=== PATIENT | male | born 1995 | race Caucasian/White ===

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

== ENCOUNTER 2019-02-25 15:24 | Emergency (ER) | payer SELFPAY ==
[2019-02-25 15:44] VITALS: BP 133/86; PULSE 89
--- NOTE | 2019-02-25 15:56 | EDM.PDOC ---
ED HPI GENERAL MEDICAL PROBLEM - General Chief Complaint: ENT Problem Stated Complaint: RIGHT JAW;POSSIBLE INFECTION Time Seen by Provider: 02/25/19 15:25 Source of Information: Reports: Patient History Limitations: Reports: No Limitations - History of Present Illness INITIAL COMMENTS - FREE TEXT/NARRATIVE: HISTORY AND PHYSICAL: History of present illness: The patient is a 23-year-old male presenting to the emergency room for complaints of his right jaw. Patient states that the pain in his right jaw started approximately 1 week ago after he noticed a "sore on the inside of my right cheek". He has concerns that his jaw may be infected due to the sore on the inside of his cheek. Patient states he woke up with this sore approximately 1 week ago. Patient states he broke his right jaw in middle school. He states he has also been disorientated for the last couple days making him dizzy and queasy at times, having right ear pain, and has had tinnitus and had last eaten last . Aggravates or alleviates his symptoms. Patient denies any fever, chills, headache, change in vision, syncope or near syncope. Denies any chest pain, back pain, shortness of breath or cough. Denies any abdominal pain, vomiting, diarrhea, constipation or dysuria. Has not noted any blood in urine or stool. Patient has been eating and drinking appropriately. Review of systems: As per history of present illness and below otherwise all systems reviewed and negative. Past medical history: As per history of present illness and as reviewed below otherwise noncontributory. Surgical history: As per history of present illness and as reviewed below otherwise noncontributory. Social history: See social history for further information Family history: As per history of present illness and as reviewed below otherwise noncontributory. Physical exam: General: Well-developed and well-nourished 23-year-old male. Alert and oriented. Flat affect and avoids eye contact. Appears in no acute distress. Vital signs have been reviewed by me. HEENT: Atraumatic, normocephalic, pupils equal and reactive bilaterally, negative for conjunctival pallor or scleral icterus, mucous membranes moist, TMs normal bilaterally, external auditory canal of the right ear is slightly erythematous, throat clear, right mandible slightly tender to palpation near the ear, neck supple, nontender, trachea midline. No drooling or trismus noted. No meningeal signs. No hot potato voice noted. Lungs: Clear to auscultation, breath sounds equal bilaterally, chest nontender. Heart: S1S2, regular rate and rhythm without overt murmur Abdomen: Soft, nondistended, nontender. Negative for masses. Skin: Intact, warm, dry. No lesions or rashes noted. Extremities: Atraumatic, moves all extremities per self without difficulty or deficits, negative for cords or calf pain. Neurovascular unremarkable. Neuro: Awake, alert, oriented. Cranial nerves II through XII unremarkable. Cerebellum unremarkable. Motor and sensory unremarkable throughout. Exam nonfocal. Notes: X-ray shows no findings for fracture or focal bony destruction. Supportive care measures were reviewed and discussed. Voices understanding and is agreeable to plan of care. Denies any further questions or concerns at this time. Diagnostics: Mandibular x-ray Therapeutics: Declines Prescription: Medrol Dosepak Impression: Canker sore Jaw pain Plan: 1. Saltwater gargle and rinse and spit 2. Take medication as directed. You may use Tylenol and/or ibuprofen as needed for pain management. 3. Follow-up with your primary care provider or the analytical research program manager as we discussed. 4. Return to the ED as needed and as discussed. Definitive disposition and diagnosis as appropriate pending reevaluation and review of above. - Related Data Allergies Allergy/AdvReac Type Severity Reaction Status Date / Time No Known Allergies Allergy Verified 02/25/19 15:34 Home Meds: Home Meds . [No Known Home Meds] 10/10/14 [History] Past Medical History Musculoskeletal History: Reports: Fracture Psychiatric History: Reports: Anxiety, Depression - Past Surgical History HEENT Surgical History: Reports: Adenoidectomy, Tonsillectomy Social & Family History - Family History Family Medical History: Noncontributory - Tobacco Use Smoking Status *Q: Never Smoker - Recreational Drug Use Recreational Drug Use: No ED ROS ENT - Review of Systems Review Of Systems: ROS reveals no pertinent complaints other than HPI. ED EXAM, ENT - Physical Exam Exam: See Below (See dictation) Course - Vital Signs Last Recorded V/S: Last Vital Signs Temp 97.9 F 02/25/19 15:32 Pulse 89 02/25/19 15:32 Resp 18 02/25/19 15:32 BP 133/86 02/25/19 15:32 Pulse Ox 99 02/25/19 15:32 Departure - Departure Time of Disposition: 16:49 Disposition: Home, Self-Care 01 Clinical Impression: Canker sore, Jaw pain - Discharge Information Referrals: PCP,None [Primary Care Provider] - Forms: ED Department Discharge Additional Instructions: The following information is given to patients seen in the emergency department who are being discharged to home. This information is to outline your options for follow-up care. We provide all patients seen in our emergency department with a follow-up referral. The need for follow-up, as well as the timing and circumstances, are variable depending upon the specifics of your emergency department visit. If you don't have a primary care physician on staff, we will provide you with a referral. We always advise you to contact your personal physician following an emergency department visit to inform them of the circumstance of the visit and for follow-up with them and/or the need for any referrals to a consulting specialist. The emergency department will also refer you to a specialist when appropriate. This referral assures that you have the opportunity for follow-up care with a specialist. All of these measure are taken in an effort to provide you with optimal care, which includes your follow-up. Under all circumstances we always encourage you to contact your private physician who remains a resource for coordinating your care. When calling for follow-up care, please make the office aware that this follow-up is from your recent emergency room visit. If for any reason you are refused follow-up, please contact the [facility] Emergency Department at and asked to speak to the emergency department charge nurse. [facility] [address] [place] [address] [id number] [address] 1. Saltwater gargle and rinse and spit 2. Take medication as directed. You may use Tylenol and/or ibuprofen as needed for pain management. 3. Follow-up with your primary care provider or the analytical research program manager as we discussed. 4. Return to the ED as needed and as discussed.
--- NOTE | 2019-02-25 16:46 | CR ---
HISTORY: Right jaw pain. FINDINGS: Four views of the mandible are provided. There are no findings for fracture or focal bony destruction. Dictated by Logan Green MD @ Feb 25 2019 4:42PM Signed by Dr. Logan Green @ Feb 25 2019 4:43PM
== END 2019-02-25 17:03 | disposition home or self-care (01) ==
LOC: MW.ED 15:24
DX: K12.0 Recurrent oral aphthae (principal)
CPT/HCPCS: 70110; 70110-26; 99283-25